=== PATIENT | female | born 1960 | race Caucasian/White ===

== ENCOUNTER 2019-03-07 21:29 | Emergency (ER) | payer BC ==
[2019-03-07 21:42] VITALS: BP 156/84; PULSE 87; RESP 18; TEMP 98.3
--- NOTE | 2019-03-07 23:04 | ED ---
Lower Extremity Injury HPI - General Source: patient Mode of arrival: ambulatory Limitations: no limitations <Taniya Uriarte - Last Filed: 03/08/19 00:24> <Lita Daily - Last Filed: 03/08/19 01:31> - General Chief Complaint: Extremity Injury, Lower Stated Complaint: LFT knee/lower leg pain Time Seen by Provider: 03/07/19 21:44 - History of Present Illness Initial Comments: 58yo female presenting today for cc of left leg pain. Pt states she has pain to the posterior left knee. 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 Pt was concerned of blood clot and presented for evaluation. Pt denies unilateral leg swelling or inability to range at the left knee. Pt denies erythema swelling of the knee. Denies fever, chills, nightsweats. Pt states she had meniscus repair in 2012. Denies recent surgeries, history of DVT/PE, denies chest pain, shortness of breath. Pt states that pain increases with walking. Remaining ROS (-) patient denies any recent b ack pain, abdominal pain, nausea or vomiting, numbness or tingling, dysuria or hematuria, constipation or diarrhea, headaches or visual changes, or any other complaints. (Taniya Uriarte) - Related Data Allergies Allergy/AdvReac Type Severity Reaction Status Date / Time No Known Allergies Allergy Verified 03/07/19 21:42 Review of Systems ROS Other: All systems not noted in ROS Statement are negative. <Taniya Uriarte - Last Filed: 03/08/19 00:24> ROS Other: All systems not noted in ROS Statement are negative. <Lita Daily - Last Filed: 03/08/19 01:31> ROS Statement: Those systems with pertinent positive or pertinent negative responses have been documented in the HPI. Past Medical History Past Medical History: No Reported History History of Any Multi-Drug Resistant Organisms: None Reported Additional Past Surgical History / Comment(s): left knee meniscus, nose surgery, Past Psychological History: No Psychological Hx Reported Smoking Status: Current every day smoker Past Alcohol Use History: Occasional Past Drug Use History: None Reported <Taniya Uriarte - Last Filed: 03/08/19 00:24> General Exam Limitations: no limitations <Taniya Uriarte - Last Filed: 03/08/19 00:24> - General Exam Comments Initial Comments: General: The patient is awake and alert, in no distress, and does not appear acutely ill. Eye: Pupils are equal, round and reactive to light, extra-ocular movements are intact. No nystagmus. There is normal conjunctiva bilaterally. No signs of icterus. Ears, nose, mouth and throat: There are moist mucous membranes and no oral lesions. Neck: The neck is supple, there is no tenderness or JVD. Cardiovascular: There is a regular rate and rhythm. No murmur, rub or gallop is appreciated. Respiratory: Lungs are clear to auscultation, respirations are non-labored, breath sounds are equal. No wheezes, stridor, rales, or rhonchi. Gastrointestinal: Soft, non-distended, non-tender abdomen without masses or organomegaly noted. There is no rebound or guarding present. No CVA tenderness. Bowel sounds are unremarkable. Musculoskeletal: Normal ROM of the knees b/l no limitations, no laxity or crepitus, no tenderness of the right knee tenderness with full flexion of the left knee. Tenderness to popliteal fossa of the left knee. No palpable masses. palpable varicose veins of the left medial lower leg. No warmth, mild tenderness, no erythema. Strength 5/5 of the le equal in comparison b/l. Sensation intact of the LE equal in comparison b/l. DP pulses equal bilaterally 2+. Neurological: A&O x 3. CN II-XII intact, There are no obvious motor or sensory deficits. Coordination appears grossly intact. Speech is normal. Skin: Skin is warm and dry and no rashes or lesions are noted. Psychiatric: Cooperative, appropriate mood & affect, normal judgment. (Taniya Uriarte) Course Vital Signs 03/07/19 21:37 Temperature 98.3 F Pulse Rate 87 Respiratory 18 Rate Blood Pressure 156/84 O2 Sat by Pulse 94 L Oximetry Medical Decision Making <Taniya Uriarte - Last Filed: 03/08/19 00:24> <Lita Daily P - Last Filed: 03/08/19 01:31> - Medical Decision Making No inflammatory changes evident on exam. No redness, swelling. I do not suspect infection. Neurovascularly intact. Varicose veins present. Pt had previous meniscus tear. Pt works long hours on feet. US (-) DVT. Pt is able to weight bear and range knee. Pt will be referred to orthopedic surgery for further evaluation and treatment of left knee pain. pt is agreeable with plan and discharge. Return parameters discussed at length with patient who is agreeable with plan of care and discharge at this time. All question answered to the best of my ability prior to discharge. (Taniya Uriarte) I was available for consultation in the emergency department. The history and physical exam were done by the midlevel provider. I was consulted for this patient's care. I reviewed the case with the midlevel provider and based on their presentation of the patient, I agree with the assessment, medical decision making and plan of care as documented. (Lita Daily) Disposition Is patient prescribed a controlled substance at d/c from ED?: No Time of Disposition: 00:18 <Taniya Uriarte - Last Filed: 03/08/19 00:24> <Lita Daily - Last Filed: 03/08/19 01:31> Clinical Impression: Left leg pain Disposition: HOME SELF-CARE Condition: Good Instructions (If sedation given, give patient instructions): Leg Pain (ED) Additional Instructions: Please use medication as discussed. Please follow-up with orthopedic surgery as discussed. Please return to emergency room if the symptoms increase or worsen or for any other concerns. Referrals: Hector Sawyer MD [Primary Care Provider] - 1-2 days Sreedhar Castillo PAC [PHYSICIAN TELEGRAPH OPERATOR] - 1-2 days
--- NOTE | 2019-03-07 23:21 | XR ---
EXAM: XR Left Knee, 3 views CLINICAL HISTORY: ITS.REASON XR Reason: Pain TECHNIQUE: Three views of the left knee. COMPARISON: No relevant prior studies available. FINDINGS: Bones/joints: No acute fracture. No dislocation. Soft tissues: Unremarkable. IMPRESSION: No acute findings.
--- NOTE | 2019-03-08 00:14 | US ---
EXAM: US Duplex Left Lower Extremity Veins CLINICAL HISTORY: ITS.REASON US Reason: Pain TECHNIQUE: Real-time duplex ultrasound scan of the left lower extremity veins integrating B-mode two-dimensional vascular structure, Doppler spectral analysis, color flow Doppler imaging and compression. COMPARISON: No relevant prior studies available. FINDINGS: Deep veins: No DVT in the visualized common femoral, femoral, proximal deep femoral or popliteal veins. The veins demonstrate normal color flow, are normally compressible, with normal phasic flow and/or augmentation response. Superficial veins: No thrombus in the visualized great saphenous vein. Soft tissues: No popliteal cyst. IMPRESSION: No DVT.
== END 2019-03-08 00:26 | disposition home or self-care (01) ==
LOC: EC 21:29
DX: I83.812 Varicose veins of left lower extremity with pain (principal); M25.562 Pain in left knee; F17.200 Nicotine dependence, unspecified, uncomplicated; Z87.828 Personal history of other (healed) physical injury and trauma; Z98.890 Other specified postprocedural states
CPT/HCPCS: 99284